=== PATIENT | female | born 1955 | race Caucasian/White ===

== ENCOUNTER → 2019-06-22 15:10 | Outpatient (CLI) | payer BC, SELFPAY ==
--- NOTE | 2019-06-22 15:14 | BI_ITS ---
MAMMOGRAPHY - BILATERAL SCREENING REASON FOR EXAM: Female, 64 years old. Routine annual screening examination. PERTINENT HISTORY: Mother with breast cancer. Grandmother with breast cancer. Aunts with breast cancer. TECHNIQUE: Digital bilateral breast gini (3D mammographic acquisition) in the CC and MLO projections. 2-D mediolateral oblique (MLO) and craniocaudad (CC) views of both breasts were obtained. CAD: Full Field Digital Mammography with Computer Added Detection was performed. COMPARISON: Comparison is made with prior examination August 15, 2016. FINDINGS: Breast Composition: The breasts are almost entirely fatty. There are no dominant masses or suspicious calcifications. No other significant abnormalities are identified. There has been no significant change since the prior study. BI/SCREEN MAMM (CAD) W/GINI BILAT IMPRESSION: Stable bilateral screening mammogram. Yearly follow-up mammogram recommended. (A) ASSESSMENT CATEGORY: BIRADS Category 1: Negative. A letter regarding these results will be sent to the patient by the facility within 30 days. Approximately 10% of breast cancers are not detected by mammography. A normal mammogram should not delay biopsy of a clinically suspicious abnormality. [id number] Electronically Signed: Manolo Escobar, at 9:17 EST , Service support ,
--- NOTE | 2019-06-22 15:49 | BD_ITS ---
STUDY: DUAL ENERGY X-RAY ABSORPTIOMETRY / DXA REASON FOR EXAM: Female, 64 years old. CLAIM INSPECTOR -- DIABETIC- ON MEDICATION -- HX OF SMOKING- QUIT AT AGE 26 -- TAKES CALCIUM AND MULTIVITAMIN -- DOES MODERATE AMOUNT OF EXERCISE -- CATRINA OF 1.25 INCHES TECHNIQUE: Bone Mineral Density (BMD) measurements of lumbar spine and bilateral hips were obtained. COMPARISON: None. FINDINGS: Lumbar Spine (L1-L4): g/cm2 (1.099) / T-score (-0.5) / Z-score (1.0) Findings are suggestive of normal bone density with a low fracture risk. Left Femur Total: g/cm2 (0.961) / T-score (-0.4) / Z-score (0.8) Left Femoral Neck: g/cm2 (0.905) / T-score (-1.0) / Z-score (0.5) Right Femur Total: g/cm2 (0.973) / T-score (-0.3) / Z-score (0.9) Right Femoral Neck: g/cm2 (0.949) / T-score (-0.6) / Z-score (0.8) BD/Dexa Bone Density Study IMPRESSION: The patient is considered normal as outlined below according to World Ej Organization (WHO) criteria with a low fracture risk. Reference Information: The T-score is the number of standard deviations above or below the standard which is normal for young adults at their peak bone mineral density. The World Health Organization (WHO) interprets the T-scores as follows: Above -1 Normal bone density Between -1 and -2.5 Osteopenia Equal to / or below -2.5 Osteoporosis As a practical clinical guideline, osteopenia may be graded as follows: Mild -1 through -1.5 Moderate -1.6 through -2.0 Severe -2.1 through -2.4 The Z-score is the number of standard deviations above or below age-matched controls. A Z-score of less than -1.5 would be considered abnormal. References: 1. NIH Osteoporosis and Related Bone Diseases http://www.osteo.org 2. International Society for Clinical Densitometry http://www.iscd.org 3. National Osteoporosis Foundation http://www.nof.org Electronically Signed: Manolo Escobar, at 14:23 EST , Service support ,
== END ==
PROVIDERS: PCP Internal Medicine; Referring Provider Internal Medicine; Visit Provider Internal Medicine
DX: Z78.0 Asymptomatic menopausal state (principal); Z12.31 Encounter for screening mammogram for malignant neoplasm of breast; Z80.3 Family history of malignant neoplasm of breast
CPT/HCPCS: 77063; 77067; 77080

== ENCOUNTER → 2020-11-20 07:20 | Outpatient (CLI) | payer MEDICARE, OTHER, SELFPAY ==
--- NOTE | 2020-11-20 07:23 | BI_ITS ---
MAMMOGRAPHY - BILATERAL SCREENING REASON FOR EXAM: Female, 65 years old. Routine annual screening examination. PERTINENT HISTORY: Mother with breast cancer. Grandmother with breast cancer. Aunts with breast cancer. TECHNIQUE: Digital bilateral breast gini (3D mammographic acquisition) in the CC and MLO projections. 2-D mediolateral oblique (MLO) and craniocaudad (CC) views of both breasts were obtained. CAD: Full Field Digital Mammography with Computer Added Detection was performed. COMPARISON: Comparison is made with prior examination dated 06/22/2019. FINDINGS: Breast Composition: The breasts are almost entirely fatty. There are no dominant masses or suspicious calcifications. No other significant abnormalities are identified. There has been no significant change since the prior study. BI/SCRN MAMM (CAD)W/GINI BILAT IMPRESSION: Stable bilateral screening mammogram. Yearly follow-up mammogram recommended. (A) ASSESSMENT CATEGORY: BIRADS Category 1: Negative. A letter regarding these results will be sent to the patient by the facility within 30 days. Approximately 10% of breast cancers are not detected by mammography. A normal mammogram should not delay biopsy of a clinically suspicious abnormality. [id number] Electronically Signed: Maonlo Escobar MD at 8:54 EDT , Service support ,
== END ==
PROVIDERS: PCP Internal Medicine; Referring Provider Internal Medicine; Visit Provider Internal Medicine
DX: Z12.31 Encounter for screening mammogram for malignant neoplasm of breast (principal)
CPT/HCPCS: 77063; 77067

== ENCOUNTER → 2021-11-23 | Outpatient (CLI) | payer MEDICARE, OTHER, SELFPAY ==
--- NOTE | 2021-11-23 07:00 | BI_ITS ---
MAMMOGRAPHY - BILATERAL SCREENING REASON FOR EXAM: Female, 66 years old. Routine annual screening examination. PERTINENT HISTORY: Mother with breast cancer. Grandmother with breast cancer. Aunts with breast cancer. TECHNIQUE: Digital bilateral breast gini (3D mammographic acquisition) in the CC and MLO projections. 2-D mediolateral oblique (MLO) and craniocaudad (CC) views of both breasts were obtained. CAD: Full Field Digital Mammography with Computer Added Detection was performed. COMPARISON: Comparison is made with prior study dated 11/20/2020 and 06/22/2019. FINDINGS: Breast Composition: The breasts are almost entirely fatty. There are no dominant masses or suspicious calcifications. Stable small benign-appearing bilateral axillary lymph nodes. No other significant abnormalities are identified. There has been no significant change since the prior study. BI/SCRN MAMM (CAD)W/GINI BILAT IMPRESSION: Stable bilateral screening mammogram. Yearly follow-up mammogram recommended. (A) ASSESSMENT CATEGORY: BIRADS Category 2: Benign. A letter regarding these results will be sent to the patient by the facility within 30 days. Approximately 10% of breast cancers are not detected by mammography. A normal mammogram should not delay biopsy of a clinically suspicious abnormality. [id number] Electronically Signed: Manolo Escobar MD at 8:48 EDT ,
== END | disposition home or self-care (01) ==
LOC: OPBI 06:58
PROVIDERS: PCP Internal Medicine; Visit Provider Internal Medicine
DX: Z12.31 Encounter for screening mammogram for malignant neoplasm of breast (principal); Z80.3 Family history of malignant neoplasm of breast
CPT/HCPCS: 77063; 77067

== ENCOUNTER → 2022-02-19 | Outpatient (CLI) | payer MEDICARE, OTHER, SELFPAY ==
--- NOTE | 2022-02-19 15:50 | RAD_ITS ---
STUDY: X-RAY - PELVIS AND LEFT HIP REASON FOR EXAM: Female, 66 years old. Hip pain, left TECHNIQUE: 4 views of the pelvis and hip. COMPARISON: None. FINDINGS: There is a non-specific bowel gas pattern. Normal visualized soft tissue structures. Normal bilateral iliac wings, sacroiliac joints and visualized sacrum. Normal bilateral superior and inferior pubic rami. Normal pubic symphysis. Normal bilateral ischial tuberosities. Moderate joint space narrowing left hip symmetric as compared to right. Moderate osteophytic spurring base of left femoral head and of left acetabular rim more pronounced than on right. RAD/HIP, UNI W/ Pelvis 2-3 Views IMPRESSION: Moderate left hip osteoarthritis. Electronically Signed: Timi Che MD, MISAEL at 16:12 EDT ,
== END | disposition home or self-care (01) ==
LOC: RAD 15:48
PROVIDERS: PCP Internal Medicine; Referring Provider Internal Medicine; Visit Provider Internal Medicine
DX: M25.552 Pain in left hip (principal)
CPT/HCPCS: 73502

== ENCOUNTER 2022-03-05 16:30 | Outpatient (RCR) | payer MEDICARE, OTHER, SELFPAY ==
--- NOTE | 2022-02-26 12:05 | HP.PTEVAL_ITS ---
Patient's Visit Information SKYLA SCHWARTZ is a 66 year old F referred to Physical Therapy by Dr. Cristiane Kingston DO with a diagnosis of L hip pain, L OA. Date of Evaluation: 02/20/22 Physical Therapist: Alberto Russell DPT - Visit Plan Frequency: 2x /Week Duration: 6 Weeks Plan: Start with straight leg distraction grade III/IV, prone PA hip mobs grade III/IV to increase hip extension. Add in hip strengthening, may have to start with open chain due to pain. Progress as tolerated. - Subjective Pt. is here today for her initial evaluation with diagnosis of L hip pain. Pt. reports having increased groin pain on the L side for a few years, but has been progressively worsening over the past few months. Pt. describes c-sign like pain on L side. Pt. did have an xray showing moderate hip OA. Pt. reports increased pain with getting up/down, stairs, twisting, lifting her leg into her car. Decreased pain with resting. She has a predominantly sitting job, but after sitting for longer periods she reports high levels of stiffness and pain. She has not do any exercises at his point in time. Pt. is hopeful to reduce symptoms in order to get back to all work and recreational activities without increase in symptoms. - Pain L hip Pain Intensity (Out of 10): 4 Pain Intensity Range: 2, 8 Comment: groin region - Objective POSTURE: Pt. has increased lateral wt. shift to R side. Slight flexed posture as well. PALPATION: pt. had mild tenderness to at anterior hip, but not gluteal pain noted to palpation. NEURO: normal sensation to light and sharp touch, normal DTR of BLEs. Pt. is able to rise on heels and toes, but needs balance aide to complete. ROM: R Hip: flexion 120deg, abd 45,deg, ext 10deg, ER 45deg, IR 10deg. No pain with testing noted. L hip: flexion 99deg increase NW, abd 45 mild increase NW, ER 30deg increase NW, IR 0deg increase NW, ext 0deg increase NW. All increase groin pain. MMT: RLE 5/5 throughout, core strength fair. LLE: ankle 5/5 throughout, knee: 5/5 throughout; hip: flexion 3+/5 increase NW, abd 3+/5 increase NW, ext 3+/5 increase NW, ER/IR not tested. GAIT: Pt. ambulates with antalgic pattern on LLE, Pt. has limited L hip extension and increased Trendelenburg stance on L side. STAIRS: Step to pattern noted loading RLE only with 2 HR to complete. - Special Tests L Hip Scour: Positive L Hip HANG - Intraarticular Pathology: Positive L Hip FADDIR - Labrum: Positive - Balance/Special Test Scores Lower Extremity Functional Score: 13 - Goals Goal 1:: LTG: pt. to be I with HEP. Goal Time Frame: 4-6 Weeks Goal 2:: STG: Pt. to sleep throughout the night without increase in symptoms. Goal Time Frame: 2-4 Weeks Goal 3:: LTG: Pt. to have increased L hip ROM to 10deg of extension allowing for increased tolerance to gait pattern. Goal Time Frame: 4-6 Weeks Goal 4:: LTG: Pt. to be able to ambulate with normal gait pattern with 0-2/10 pain in L hip. Goal Time Frame: 4-6 Weeks Goal 5:: LTG: Pt. to have increased L hip and core strength to at least 5-/5 throughout. Goal Time Frame: 4-6 Weeks - Rehabilitation Potential Physical Therapy Diagnosis: Pt. has signs and symptoms consistent with L hip OA. She has xray showing moderate hip OA, C sign pain and limited ROM all suggest hip OA as the culprit. Pt. has marked ROM loss, decreased strength, difficulty with walking. I would recommend PT to work on the above limitations allowing for increased tolerance with all functional mobility. Rehabilitation Potential: Good - Anticipated Interventions Patient/Client Instruction: Educate patient on: Condition, Plan of Care, Risk Factors, Benefits of Fitness Program For the Purpose of:: To improve self management, To prevent re-injury, To improve ability to perform tasks related to life management, To improve tolerance to ADL's Therapeutic Exercise to Include: Strength training, Power training, Endurance training, Postural training, Flexibilty training, Gait and locomotor training, Passive ROM, Active ROM For the Purpose of:: To decrease pain, To increase ROM, To improve nutrient delivery to tissue, To increase oxygenation perfusion, To improve muscle performance and motor function, To improve ability to perform ADL's, To increase tolerance to activity/condition/position, To decrease soft tissue restriction, To increase flexibility/ROM Manual Therapy Techniques to Include: Mobilization For the Purpose of:: To decrease pain, To decrease swelling/inflammation, To increase ROM Thank you for the opportunity to evaluate your patient. For Medicare and Medicare HMO plans, please review the plan of care and approve it. It will need to be FAXED BACK to us at [phone] for Medicare purposes. For Medicare only, by signing this I certify the plan of care. Please let me know if there are questions or concerns regarding this plan of care. Physician Signature: ___Date:
--- NOTE | 2022-03-28 15:20 | HP.PT.NRP ---
SKYLA SCHWARTZ was seen in my office for initial evaluation on 02/20/22. The following Plan of Care was established for this patient: Initial Frequency: 2x /Week Initial Duration: 6 Weeks Patient/Client Instruction: Educate patient on: Condition, Plan of Care, Risk Factors, Benefits of Fitness Program For the Purpose of:: To improve self management, To prevent re-injury, To improve ability to perform tasks related to life management, To improve tolerance to ADL's Therapeutic Exercise to Include: Strength training, Power training, Endurance training, Postural training, Flexibilty training, Gait and locomotor training, Passive ROM, Active ROM For the Purpose of:: To decrease pain, To increase ROM, To improve nutrient delivery to tissue, To increase oxygenation perfusion, To improve muscle performance and motor function, To improve ability to perform ADL's, To increase tolerance to activity/condition/position, To decrease soft tissue restriction, To increase flexibility/ROM Manual Therapy Techniques to Include: Mobilization For the Purpose of:: To decrease pain, To decrease swelling/inflammation, To increase ROM This patient was last seen in our office 03/05/22. Pertinent comments regarding their Physical therapy will appear below: Pt. called in today and cancelled the rest of her appointments. She reports having improvement in symptoms and is returning to physician. At this point I will be discontinuing this patient from physical therapy. I would be happy to see this patient again in the future if found appropriate by the physician. Thank you! Alberto Russell, DPT Balance/Gait/Functional tests - Balance/Special Test Scores Lower Extremity Functional Score: 13
== END 2022-03-05 19:00 | disposition home or self-care (01) ==
LOC: PT 16:30
PROVIDERS: PCP Internal Medicine; Referring Provider Internal Medicine; Visit Provider Internal Medicine
DX: M25.552 Pain in left hip (principal)
CPT/HCPCS: 97110; 97140; 97161